=== PATIENT | female | born 1970 | race Caucasian/White ===

== ENCOUNTER 2017-06-03 19:11 | Emergency (ER) | payer BC ==
[~2017-06-03] VITALS: Ht 165.1 cm; Wt 106.0 kg
[2017-06-03 19:18] VITALS: TEMP 37; Ht 165.1 cm; Wt 106.0 kg
--- NOTE | 2017-06-03 19:42 | EMERGENCY ROOM VISIT NOTE ---
History Report prepared by Mary: Polly Ospina Under the Supervision of: Dr. Kenna Hastings, D.O. First contact with patient: 19:29 Chief Complaint: MENTAL HEALTH EVALUATION Stated Complaint: DEPRESSION, SUICIDAL THOUGHTS History of Present Illness The patient is a 47 year old female who presents to the Emergency Room with complaints of a mental health evaluation today. The patient states that she has been messing around with medications for anxiety the last month and that she has seen many doctors. She states that she has had anxiety for years. She reports that she does not feel depressed but that she does feel anxious. The patient reports that her best friend recently committed suicide. 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 She also states that her mother recently left, her father had strokes before she was born, and that she had a rough up-bringing. The patient states that she feels as if all of the stress is catching up to her, and that she just would like to find the right medication for her anxiety. The patient denies suicidal and homicidal ideation. Per her , the patient has irritable bowel syndrome and an irregular ECG. She reports a history of a hysterectomy. Source of History: patient, spouse/significant other () Onset: today Position: other (global) Quality: other (mental health evaluation) Timing: constant Review of Systems See HPI for pertinent positives & negatives. A total of 10 systems reviewed and were otherwise negative. Past Medical & Surgical Medical Problems: (1) IBS (irritable bowel syndrome) Surgical Problems: (1) H/O: hysterectomy Family History FH: CVA (cerebrovascular accident) Social History Smoking Status: Never Smoker Marital Status: Current/Historical Medications Scheduled Citalopram Hydrobromide (Celexa), 10 MG PO DAILY Dicyclomine Hcl (Bentyl), 1 CAP PO TID Estradiol (Estradiol), 1 TAB PO DAILY Furosemide (Lasix), 20 MG PO PRN Magnesium Oxide (Mg Supplement (Magnesium), 1 CAP PO DAILY Potassium Chloride (Micro-K Ext Rel), 10 MEQ PO PRN Scheduled PRN Lorazepam (Ativan), 0.5 MG PO TID PRN for Anxiety/Agitation Allergies Coded Allergies: No Known Allergies (Unverified , 06/03/17) EXTREMELY SENSITIVE TO ANTIBITOTICS PER PT Physical Exam Vital Signs Date Time Temp Pulse Resp B/P (MAP) Pulse Ox O2 Delivery O2 Flow Rate FiO2 10/5/17 21:46 84 18 131/84 99 06/03/17 19:18 37.0 96 18 126/90 98 Room Air Physical Exam GENERAL: alert, well appearing, well nourished, no distress, non-toxic. Tearful and anxious EYE EXAM: normal conjunctiva, PERRL and EOM's grossly intact OROPHARYNX: no exudate, no erythema, lips, buccal mucosa, and tongue normal and mucous membranes are moist NECK: supple, no nuchal rigidity, no adenopathy, non-tender LUNGS: Clear to auscultation. Normal chest wall mechanics HEART: no murmurs, S1 normal and S2 normal ABDOMEN: abdomen soft, non-tender, normo-active bowel sounds, no masses, no rebound or guarding. BACK: Back is symmetrical on inspection and there is no deformity, no midline tenderness, no CVA tenderness. SKIN: no rashes and no bruising UPPER EXTREMITIES: upper extremities are grossly normal. LOWER EXTREMITIES: No pitting edema. NEURO EXAM: Normal sensorium, cranial nerves II-XII grossly intact, normal speech, no gross weakness of arms, no gross weakness of legs. Gross sensation intact. PSYCH: denies: SI, HI, hallucinations Medical Decision & Procedures Laboratory Results 06/03/17 20:08 Red Blood Count 4.75, Mean Corpuscular Volume 90.5, Mean Corpuscular Hemoglobin 29.7, Mean Corpuscular Hemoglobin Concent 32.8, Mean Platelet Volume 9.9, Neutrophils (%) (Auto) 59.7, Lymphocytes (%) (Auto) 29.6, Monocytes (%) (Auto) 9.0, Eosinophils (%) (Auto) 1.1, Basophils (%) (Auto) 0.3, Neutrophils # (Auto) 4.69, Lymphocytes # (Auto) 2.33, Monocytes # (Auto) 0.71, Eosinophils # (Auto) 0.09, Basophils # (Auto) 0.02 06/03/17 20:08 Test 06/03/17 20:08 White Blood Count 7.86 K/uL (4.8-10.8) Red Blood Count 4.75 M/uL (4.2-5.4) Hemoglobin 14.1 g/dL (12.0-16.0) Hematocrit 43.0 % (37-47) Mean Corpuscular Volume 90.5 fL (80-100) Mean Corpuscular Hemoglobin 29.7 pg (25-34) Mean Corpuscular Hemoglobin Concent 32.8 g/dl (32-36) Platelet Count 259 K/uL (130-400) Mean Platelet Volume 9.9 fL (7.4-10.4) Neutrophils (%) (Auto) 59.7 % Lymphocytes (%) (Auto) 29.6 % Monocytes (%) (Auto) 9.0 % Eosinophils (%) (Auto) 1.1 % Basophils (%) (Auto) 0.3 % Neutrophils # (Auto) 4.69 K/uL (1.4-6.5) Lymphocytes # (Auto) 2.33 K/uL (1.2-3.4) Monocytes # (Auto) 0.71 K/uL (0.11-0.59) Eosinophils # (Auto) 0.09 K/uL (0-0.5) Basophils # (Auto) 0.02 K/uL (0-0.2) RDW Standard Deviation 42.2 fL (36.4-46.3) RDW Coefficient of Variation 12.8 % (11.5-14.5) Immature Granulocyte % (Auto) 0.3 % Immature Granulocyte # (Auto) 0.02 K/uL (0.00-0.02) Anion Gap 6.0 mmol/L (3-11) Est Creatinine Clear Calc Drug Dose 91.4 ml/min Estimated GFR () 84.9 Estimated GFR (Non- 73.3 BUN/Creatinine Ratio 13.2 (10-20) Calcium Level 9.1 mg/dl (8.5-10.1) Magnesium Level 2.2 mg/dl (1.8-2.4) Total Bilirubin 1.0 mg/dl (0.2-1) Aspartate Amino Transf (AST/SGOT) 40 U/L (15-37) Alanine Aminotransferase (ALT/SGPT) 93 U/L (12-78) Alkaline Phosphatase 66 U/L (45-117) Troponin I < 0.015 ng/ml (0-0.045) Total Protein 7.8 gm/dl (6.4-8.2) Albumin 4.0 gm/dl (3.4-5.0) Globulin 3.8 gm/dl (2.5-4.0) Albumin/Globulin Ratio 1.1 (0.9-2) Thyroid Stimulating Hormone (TSH) 1.580 uIu/ml (0.300-4.500) Ethyl Alcohol mg/dL < 3.0 mg/dl (0-3) Laboratory results per my review. ECG Indication: other (medication) Rate (beats per minute): 83 Rhythm: sinus rhythm Findings: T-wave inversion (in lead III), no acute ischemic change, other ( normal axis, normal intervals , flattened T-wave in aVF) ED Course 1929: The patient was evaluated in room A6. A complete history and physical exam was performed. 2107: Pt seen/evaluated by psych case work aide. [place] stable for outpt f/u. 2111: Upon reevaluation, the patient is feeling better. I discussed the findings and the treatment plan with the patient. She verbalizes agreement and understanding. She was discharged home. Medical Decision Differential diagnosis: Etiologies such as mood disorder, infection, hypoglycemia, electrolyte abnormalities, cardiac sources, intracerebral event, toxicologic, neurologic, as well as others were entertained. Pt denies SI/HI, no paranoia/hallucinations. Pt very anxious and would like help getting onto correct medications so she feels better and can continue work/ classes. supportive. I do not feel she is an imminent danger to herself or others. Medication Reconcilliation Current Medication List: was personally reviewed by me Blood Pressure Screening Patient's blood pressure: Normal blood pressure Impression Primary Impression: Generalized anxiety disorder Additional Impression: Major depression Scribe Attestation The scribe's documentation has been prepared under my direction and personally reviewed by me in its entirety. I confirm that the note above accurately reflects all work, treatment, procedures, and medical decision making performed by me. Departure Information Dispostion Home / Self-Care Referrals No Doctor, Assigned (PCP) Forms HOME CARE DOCUMENTATION FORM, IMPORTANT VISIT INFORMATION Patient Instructions [facility] Additional Instructions Please follow-up as directed by the psych disease case manager. If you feel worse or begin having thoughts of wanting to hurt yourself or someone else, please return to the emergency room. Problem Qualifiers Additional Impression: Major depression Major depression recurrence: recurrent Active/Remission status: in partial remission Qualified Codes: F33.41 - Major depressive disorder, recurrent, in partial remission
[2017-06-03] MEDS ORDERED: DICY10CA55 PO (19:53)
[2017-06-03 20:26] LABS: BASO % 0.3 %; BASO ABS # 0.02 K/uL (0-0.2); COMPLETE YES; EOS % 1.1 %; IG% 0.3 %; LYMPH % 29.6 %; LYMPH ABS # 2.33 K/uL (1.2-3.4); MEAN CELL VOLUME 90.5 fL (80-100); MEAN CORPUSCULAR HEMOGLOBIN 29.7 pg (25-34); MEAN CORPUSCULAR HGB CONC 32.8 g/dl (32-36); MEAN PLATELET VOLUME 9.9 fL (7.4-10.4); NEUT % 59.7 %; PLATELET COUNT 259 K/uL (130-400); RED BLOOD COUNT 4.75 M/uL (4.2-5.4); WHITE BLOOD COUNT 7.86 K/uL (4.8-10.8)
[2017-06-03 20:43] LABS: ALT/SGPT 93 U/L (12-78); BLOOD UREA NITROGEN 12 mg/dl (7-18); BUN/CREATININE RATIO 13.2 (10-20); CALCIUM 9.1 mg/dl (8.5-10.1); CARBON DIOXIDE 28 mmol/L (21-32); CHLORIDE 106 mmol/L (98-107); CREATININE 0.94 mg/dl (0.60-1.20); GLUCOSE 104 mg/dl (70-99); MAGNESIUM 2.2 mg/dl (1.8-2.4); POTASSIUM 3.7 mmol/L (3.5-5.1); SODIUM 140 mmol/L (136-145)
[2017-06-03 20:54] LABS: ALB/GLOB RATIO 1.1 (0.9-2); ALKALINE PHOSPHATASE 66 U/L (45-117); AST/SGOT 40 U/L (15-37)
[2017-06-03 21:46] VITALS: BP 131/84; PULSE 84; O2SAT 99
== END 2017-06-03 21:46 | disposition home or self-care (01) ==
LOC: C.EDB 19:13 → C.EDA 21:46
DX: F41.1 Generalized anxiety disorder (principal); F33.41 Major depressive disorder, recurrent, in partial remission; K58.9 Irritable bowel syndrome, unspecified; Z90.710 Acquired absence of both cervix and uterus; Z82.3 Family history of stroke

== ENCOUNTER 2017-06-07 13:00 | Emergency (ER) | payer BC ==
[~2017-06-07] VITALS: Ht 165.1 cm; Wt 105.4 kg
[~2017-06-07 13:00] MED LIST: DICY10CA55 PO
[2017-06-07 13:22] VITALS: TEMP 36.9; Ht 165.1 cm; Wt 105.4 kg
[2017-06-07] MEDS ORDERED: LORAZEPAM 2 MG/ML 1 ML VIAL IV STA (13:38)
[2017-06-07] MEDS ORDERED: SODIUM CHLORIDE 0.9% 1000ML 1,000 ML IV STA (13:38)
--- NOTE | 2017-06-07 14:01 | EMERGENCY ROOM VISIT NOTE ---
History Report prepared by Mary: Wendy Wolfe Under the Supervision of: Dr. Elvin Hoffman D.O. First contact with patient: 13:30 Chief Complaint: OTHER COMPLAINT Stated Complaint: SENT BY DR HERNANDEZ FOR EVAL FOR SEROTONIN TOXICITY History of Present Illness The patient is a 47 year old female who presents to the Emergency Room with complaints of persistent weakness for the past month and a half. The patient states that she has a history of anxiety and depression, noting that recently her doctors have been changing her psychiatric medications. She states that over the past month, she has been experiencing a decrease in appetite, low energy, generalized malaise, headaches, nausea, vomiting, diarrhea, increased anxiety, and increased depression. The patient states that she called her psychiatrist yesterday morning and listed off her symptoms. She states that her psychiatrist called her this morning and told her to go to the emergency department to rule out Serotonin Toxicity or Syndrome. The patient denies any auditory or visual hallucinations. She denies any suicidal or homicidal ideation. The patient denies ever being evaluated in a psychiatric facility in the past for her symptoms. She denies any drug or alcohol use. Source of History: patient Onset: month and a half Position: other (global) Quality: other (weakness) Timing: other (persistent) Associated Symptoms: + headache, + nausea, + vomiting, + diarrhea Note: Associated Symptoms: generalized malaise, decrease in appetite, low energy, increased anxiety, and increased epression Review of Systems See HPI for pertinent positives & negatives. A total of 10 systems reviewed and were otherwise negative. Past Medical & Surgical Medical Problems: (1) IBS (irritable bowel syndrome) Surgical Problems: (1) H/O: hysterectomy Family History FH: CVA (cerebrovascular accident) Social History Smoking Status: Never Smoker Marital Status: Housing Status: lives with significant other Occupation Status: employed Current/Historical Medications Scheduled Citalopram Hydrobromide (Celexa), 10 MG PO DAILY Estradiol (Estradiol), 2 MG PO DAILY Furosemide (Lasix), 20 MG PO PRN Magnesium Oxide (Mg Supplement (Magnesium), 500 MG PO DAILY Potassium Chloride (Micro-K Ext Rel), 10 MEQ PO PRN Scheduled PRN Lorazepam (Ativan), 0.5 MG PO TID PRN for Anxiety/Agitation Allergies Coded Allergies: No Known Allergies (Unverified , 06/07/17) EXTREMELY SENSITIVE TO ANTIBITOTICS PER PT Physical Exam Vital Signs Date Time Temp Pulse Resp B/P (MAP) Pulse Ox O2 Delivery O2 Flow Rate FiO2 06/08/17 06:39 77 16 116/79 06/08/17 00:05 74 20 126/74 98 06/07/17 19:37 78 18 123/71 99 Room Air 06/07/17 18:15 64 20 115/83 98 Room Air 06/07/17 17:20 74 20 113/76 96 Room Air 06/07/17 15:15 83 16 121/80 99 Room Air 06/07/17 14:01 83 06/07/17 13:49 76 122/87 80 137/92 88 218/108 06/07/17 13:22 36.9 104 20 130/86 96 Room Air Physical Exam GENERAL: Patient is awake, alert, and in no acute distress. Patient is resting comfortably and showing no signs of anxiety EYES: The conjunctivae are clear. The pupils are round and reactive. EARS, NOSE, MOUTH AND THROAT: The nose is without any evidence of any deformity. Mucous membranes are moist tongue is midline NECK: The neck is nontender and supple. RESPIRATORY: Normal respiratory effort is noted there is no evidence of wheezing rhonchi or rales CARDIOVASCULAR: Regular rate and rhythm noted there no murmurs rubs or gallops normal S1 normal S2 GASTROINTESTINAL: The abdomen is soft. Bowel sounds are present in all quadrants. Abdomen is nontender MUSCULOSKELETAL/EXTREMITIES: There is no evidence of gross deformity full range of motion is noted in the hips and shoulders SKIN: There is no obvious evidence of any rash. There are no petechiae, pallor or cyanosis noted. NEUROLOGIC: Patient is awake alert and oriented x3 strength is symmetric patellar reflexes are 2+ bilaterally PSYCH: Awake, alert, currently denying any suicidal or homicidal ideation. Medical Decision & Procedures ER Provider Diagnostic Interpretation: Radiology results as stated below per my review and radiologist interpretation: CT SCAN OF THE BRAIN WITHOUT IV CONTRAST CLINICAL HISTORY: Headache. COMPARISON STUDY: No priors. TECHNIQUE: Unenhanced axial CT scan of the brain is performed from the vertex to the skull base. A dose lowering technique was utilized adhering to the principles of ALARA. CT DOSE: 614.27 mGy.cm FINDINGS: Brain parenchyma: The brain parenchyma is normal in appearance. There is no hemorrhage, mass effect, or evidence of acute territorial ischemia by CT criteria. Ryan-white matter is preserved. No extra-axial fluid collection is seen. Ventricles, sulci, cisterns: Normal in configuration. Intracranial vasculature: The visualized intracranial vasculature at the skull base is normal in appearance. Calvarium: Unremarkable. Sinuses and mastoids: Trace fluid is seen within the maxillary antra. The remaining visualized paranasal sinuses are clear. The mastoid air cells are well pneumatized. Orbits: The bony orbits are grossly intact. IMPRESSION: No acute intracranial abnormality. Electronically signed by: Vipin Gillette M.D. 06/07/2017 3:10 PM Dictated Date/Time: 06/07/2017 3:09 PM Laboratory Results 06/07/17 13:55 Red Blood Count 4.68, Mean Corpuscular Volume 90.2, Mean Corpuscular Hemoglobin 32.1, Mean Corpuscular Hemoglobin Concent 35.5, Mean Platelet Volume 10.5, Neutrophils (%) (Auto) 59.5, Lymphocytes (%) (Auto) 29.6, Monocytes (%) (Auto) 9.3, Eosinophils (%) (Auto) 1.2, Basophils (%) (Auto) 0.3, Neutrophils # (Auto) 4.64, Lymphocytes # (Auto) 2.30, Monocytes # (Auto) 0.72, Eosinophils # (Auto) 0.09, Basophils # (Auto) 0.02 06/07/17 13:55 Test 06/07/17 13:47 06/07/17 13:55 06/07/17 14:25 Bedside Glucose 96 mg/dl (70-90) White Blood Count 7.78 K/uL (4.8-10.8) Red Blood Count 4.68 M/uL (4.2-5.4) Hemoglobin 15.0 g/dL (12.0-16.0) Hematocrit 42.2 % (37-47) Mean Corpuscular Volume 90.2 fL (80-100) Mean Corpuscular Hemoglobin 32.1 pg (25-34) Mean Corpuscular Hemoglobin Concent 35.5 g/dl (32-36) Platelet Count 252 K/uL (130-400) Mean Platelet Volume 10.5 fL (7.4-10.4) Neutrophils (%) (Auto) 59.5 % Lymphocytes (%) (Auto) 29.6 % Monocytes (%) (Auto) 9.3 % Eosinophils (%) (Auto) 1.2 % Basophils (%) (Auto) 0.3 % Neutrophils # (Auto) 4.64 K/uL (1.4-6.5) Lymphocytes # (Auto) 2.30 K/uL (1.2-3.4) Monocytes # (Auto) 0.72 K/uL (0.11-0.59) Eosinophils # (Auto) 0.09 K/uL (0-0.5) Basophils # (Auto) 0.02 K/uL (0-0.2) RDW Standard Deviation 41.8 fL (36.4-46.3) RDW Coefficient of Variation 12.8 % (11.5-14.5) Immature Granulocyte % (Auto) 0.1 % Immature Granulocyte # (Auto) 0.01 K/uL (0.00-0.02) Prothrombin Time 11.1 SECONDS (9.0-12.0) Prothromb Time International Ratio 1.0 (0.9-1.1) Activated Partial Thromboplast Time 28.2 SECONDS (21.0-31.0) Partial Thromboplastin Ratio 1.1 Anion Gap 8.0 mmol/L (3-11) Est Creatinine Clear Calc Drug Dose 93.1 ml/min Estimated GFR () 87.2 Estimated GFR (Non- 75.2 BUN/Creatinine Ratio 15.2 (10-20) Calcium Level 9.0 mg/dl (8.5-10.1) Magnesium Level 2.0 mg/dl (1.8-2.4) Total Bilirubin 1.1 mg/dl (0.2-1) Direct Bilirubin 0.2 mg/dl (0-0.2) Aspartate Amino Transf (AST/SGOT) 29 U/L (15-37) Alanine Aminotransferase (ALT/SGPT) 108 U/L (12-78) Alkaline Phosphatase 67 U/L (45-117) Total Creatine Kinase 43 U/L (26-192) Troponin I < 0.015 ng/ml (0-0.045) Total Protein 7.7 gm/dl (6.4-8.2) Albumin 4.0 gm/dl (3.4-5.0) Lipase 151 U/L (73-393) Thyroid Stimulating Hormone (TSH) 1.010 uIu/ml (0.300-4.500) Ethyl Alcohol mg/dL < 3.0 mg/dl (0-3) Urine Color YELLOW Urine Appearance CLEAR (CLEAR) Urine pH 5.5 (4.5-7.5) Urine Specific [place] 1.014 (1.000-1.030) Urine Protein NEG (NEG) Urine Glucose (UA) NEG (NEG) Urine Ketones NEG (NEG) Urine Occult Blood NEG (NEG) Urine Nitrite NEG (NEG) Urine Bilirubin NEG (NEG) Urine Urobilinogen NEG (NEG) Urine Leukocyte Esterase NEG (NEG) Urine Opiates Screen NEG (NEG) Urine Methadone, Qualitative NEG (NEG) Urine Barbiturates NEG (NEG) Urine Phencyclidine (PCP) Level NEG (NEG) Ur Amphetamine/Methamphetamine NEG (NEG) MDMA (Ecstasy) Screen NEG (NEG) Urine Benzodiazepines Screen NEG (NEG) Urine Cocaine Metabolite NEG (NEG) Urine Marijuana (THC) NEG (NEG) Laboratory results per my review. Medications Administered Medications (Trade) Dose Ordered Sig/Cecy Route Start Time Stop Time Status Last Admin Dose Admin Sodium Chloride 1,000 ml @ 999 mls/hr Q1H1M STAT IV 06/07/17 13:38 06/07/17 14:38 DC 06/07/17 14:26 999 MLS/HR Lorazepam (Ativan Inj) 1 mg NOW STAT IV 06/07/17 13:38 06/07/17 13:41 DC 06/07/17 14:34 1 MG Hydroxyzine HCl (Vistaril Tab) 50 mg NOW STAT PO 06/07/17 22:47 06/07/17 22:48 DC 06/07/17 22:47 50 MG ECG Indication: weakness Rate (beats per minute): 79 Rhythm: normal sinus Findings: no acute ischemic change, no ectopy Comparison ECG Date: 06/03/17 Change: no significant change ED Course 1335: The patient was evaluated in room C3. A complete history and physical examination were performed. 1338: Ordered Ativan Inj 1 mg IV, Sodium Chloride 1000 ml @ 999 mls/hr IV. 1514: I reevaluated the patient and she is resting. She will be evaluated by mental health. Medical Decision Differential diagnosis: Etiologies such as mood disorder, infection, hypoglycemia, electrolyte abnormalities, cardiac sources, intracerebral event, toxicologic, neurologic, as well as others were entertained. Nursing notes reviewed. Patient's previous electronic medical records were reviewed. The patient is a 47-year-old female who presented to the emergency department for a mental health evaluation. The patient's primary therapist Center to the emergency department for an evaluation because she has multiple changes in her medications recently. The patient did not have any focal neurologic deficits. I discussed the patient's laboratory and radiographic studies with her. She was medically cleared in the emergency department. She was evaluated by the mental health delegate and at this time a bed search is underway. The patient wishes to be evaluated for inpatient management for medication changes and medication management. The patient was treated with IV fluids in the emergency department. A bed search was still pending at change of shift. The patient was signed out to Dr. MEDRANO please see his note for continuation of care and final disposition.. Medication Reconcilliation Current Medication List: was personally reviewed by me Blood Pressure Screening Patient's blood pressure: Elevated blood pressure Blood pressure disposition: Elevated BP felt to be situational, Did not require urgent referral Impression Primary Impression: Depression Additional Impression: Anxiety Scribe Attestation The scribe's documentation has been prepared under my direction and personally reviewed by me in its entirety. I confirm that the note above accurately reflects all work, treatment, procedures, and medical decision making performed by me. Departure Information Dispostion Still a Patient Referrals Kel Villeda M.D. (PCP) Problem Qualifiers Primary Impression: Depression Depression Type: unspecified Qualified Codes: F32.9 - Major depressive disorder, single episode, unspecified
[2017-06-07 14:35] LABS: PARTIAL THROMBOPLASTIN RATIO 1.1; PROTHROMBIN TIME (PATIENT) 11.1 SECONDS (9.0-12.0)
[2017-06-07 14:37] LABS: URINE APPEARANCE CLEAR (CLEAR); URINE BILIRUBIN NEG (NEG); URINE COLOR YELLOW; URINE NITRITE NEG (NEG); URINE PH 5.5 (4.5-7.5); URINE SPECIFIC GRAVITY 1.014 (1.000-1.030); UROBILINOGEN NEG (NEG)
[2017-06-07 14:39] LABS: MANUAL MICROSCOPIC REQUIRED? NO; REVIEW REQ? NO
[2017-06-07 14:44] LABS: ALT/SGPT 108 U/L (12-78); AST/SGOT 29 U/L (15-37); BLOOD UREA NITROGEN 14 mg/dl (7-18); BUN/CREATININE RATIO 15.2 (10-20); CARBON DIOXIDE 26 mmol/L (21-32); CHLORIDE 105 mmol/L (98-107); CREATININE 0.92 mg/dl (0.60-1.20); GLUCOSE 100 mg/dl (70-99); POTASSIUM 3.4 mmol/L (3.5-5.1); SODIUM 139 mmol/L (136-145)
[2017-06-07 15:01] LABS: BENZODIAZEPINE, URINE NEG (NEG); COCAINE,URINE NEG (NEG); PHENCYCLIDINE, URINE NEG (NEG)
--- NOTE | 2017-06-07 15:11 | DIAGNOSTIC IMAGING REPORT ---
CT SCAN OF THE BRAIN WITHOUT IV CONTRAST CLINICAL HISTORY: Headache. COMPARISON STUDY: No priors. TECHNIQUE: Unenhanced axial CT scan of the brain is performed from the vertex to the skull base. A dose lowering technique was utilized adhering to the principles of ALARA. CT DOSE: 614.27 mGy.cm FINDINGS: Brain parenchyma: The brain parenchyma is normal in appearance. There is no hemorrhage, mass effect, or evidence of acute territorial ischemia by CT criteria. Ryan-white matter is preserved. No extra-axial fluid collection is seen. Ventricles, sulci, cisterns: Normal in configuration. Intracranial vasculature: The visualized intracranial vasculature at the skull base is normal in appearance. Calvarium: Unremarkable. Sinuses and mastoids: Trace fluid is seen within the maxillary antra. The remaining visualized paranasal sinuses are clear. The mastoid air cells are well pneumatized. Orbits: The bony orbits are grossly intact. IMPRESSION: No acute intracranial abnormality. Electronically signed by: Vipin Gillette M.D. 06/07/2017 3:10 PM Dictated Date/Time: 06/07/2017 3:09 PM
[2017-06-07 15:13] LABS: ALKALINE PHOSPHATASE 67 U/L (45-117)
[2017-06-07 15:16] LABS: BASO % 0.3 %; BASO ABS # 0.02 K/uL (0-0.2); COMPLETE YES; EOS % 1.2 %; HEMATOCRIT 42.2 % (37-47); IG% 0.1 %; LYMPH % 29.6 %; MEAN CELL VOLUME 90.2 fL (80-100); MEAN CORPUSCULAR HEMOGLOBIN 32.1 pg (25-34); MEAN CORPUSCULAR HGB CONC 35.5 g/dl (32-36); MEAN PLATELET VOLUME 10.5 fL (7.4-10.4); MONO % 9.3 %; NEUT % 59.5 %; PLATELET COUNT 252 K/uL (130-400); RED BLOOD COUNT 4.68 M/uL (4.2-5.4); WHITE BLOOD COUNT 7.78 K/uL (4.8-10.8)
[2017-06-07] MEDS ORDERED: MAGN500C PO (19:53)
[2017-06-07] MEDS ORDERED: FURO-85 PO (19:53)
[2017-06-07] MEDS ORDERED: CITA10TA8 PO (19:53)
[2017-06-07] MEDS ORDERED: ESTR2TAB PO (19:53)
[2017-06-07] MEDS ORDERED: POTA10CA28 PO (19:53)
[2017-06-07] MEDS ORDERED: LORA-741 PO (19:53)
--- NOTE | 2017-06-07 20:36 | EMERGENCY ROOM VISIT NOTE ---
ED Visit Note First contact with patient: 20:34 The patient was taken in signout from Dr. Elvin Hoffman at the change of shift. Please see that note for details. The patient was pending further mental health evaluation. The patient was accepted at [facility] in [place]. She did cry something for sleep and has Ativan on her medication list. She was given hydroxyzine 50 mg and 1 mg of Ativan. She is resting comfortably. She is pending transfer. Her case will be signed out to Dr. tracy at the change of shift to be monitored overnight.
[2017-06-07] MEDS ORDERED: hydrOXYzine HCL 25 MG TAB PO STA (22:47)
[2017-06-07] MEDS ORDERED: LORAZEPAM 0.5 MG TAB SL STA (22:47)
[2017-06-08 00:05] VITALS: O2SAT 98
--- NOTE | 2017-06-08 06:37 | EMERGENCY ROOM VISIT NOTE ---
ED Visit Note First contact with patient: 06:36 Pt signed out to me by Dr. Juarez. No issues reported to me overnight by nursing staff. Pt awaiting transportation to [facility] in [place] this morning. Signed out to Dr. Pleitez.
[2017-06-08 06:39] VITALS: BP 116/79; PULSE 77
== END 2017-06-08 06:48 ==
LOC: C.EDB 13:01 → C.EDA 06-08 06:48
DX: Z04.8 Encounter for examination and observation for other specified reasons (principal); F32.9 Major depressive disorder, single episode, unspecified; F41.9 Anxiety disorder, unspecified

== ENCOUNTER → 2018-04-19 | Outpatient (CLI) | payer BC ==
[~2018-04-19] VITALS: Ht 165.1 cm; Wt 105.5 kg
[~2018-04-19] MED LIST changes: +CITA10TA8 PO; -DICY10CA55 PO; +ESTR2TAB PO; +FURO-85 PO; +LORA-741 PO; +MAGN500C PO; +POTA10CA28 PO
[2018-04-19 14:50] VITALS: BP 127/84; PULSE 94; Ht 165.1 cm; Wt 105.5 kg
== END | disposition home or self-care (01) ==
LOC: C.NEUR 14:15
PROVIDERS: ATTEND Internal Medicine Pulmonary Disease
DX: G47.30 Sleep apnea, unspecified (principal); F41.8 Other specified anxiety disorders